=== PATIENT | male | born 1995 | race Hispanic/Latino ===

== ENCOUNTER 2020-07-27 01:11 | Emergency (ER) | payer OTHER | END 2020-07-27 04:50 | disposition home or self-care (01) | LOC: ERS 01:11 | DX: F41.9 Anxiety disorder, unspecified (principal) | CPT/HCPCS: 99281 ==

== ENCOUNTER 2021-02-19 06:27 | Emergency (ER) | payer OTHER ==
[2021-02-19] MEDS ORDERED: Acetaminophen 500 MG TAB ONE (07:14)
[2021-02-19 12:06] LABS: SARS-CoV-2 PCR by NAA Not Detected (NotDetected)
== END 2021-02-19 07:45 | disposition home or self-care (01) ==
LOC: ERS 06:27
DX: J02.9 Acute pharyngitis, unspecified (principal); Z20.822 Contact with and (suspected) exposure to COVID-19
CPT/HCPCS: 87081; 87430; 99283; U0003; U0005

== ENCOUNTER 2023-06-01 10:09 | Emergency (ER) | payer OTHER, SELFPAY | END 2023-06-01 12:21 | disposition home or self-care (01) | LOC: ERS 10:09 | DX: R05.9 Cough, unspecified (principal) | CPT/HCPCS: 71046 ==